=== PATIENT | female | born 1955 | race Caucasian/White ===

== ENCOUNTER 2018-08-24 06:00 | Day surgery (SDC) | payer MEDICAID ==
[2018-08-21 14:24] LABS: BASOPHILS # (AUTO) 0.1 X10'3 (0-0.2); EOSINOPHILS # (AUTO) 0.1 X10'3 (0-0.9); EOSINOPHILS % (AUTO) 2.1 % (0-6); LYMPHOCYTES # (AUTO) 1.6 X10'3 (1.1-4.8); LYMPHOCYTES % (AUTO) 28.8 % (21-51); MEAN CORPUSCULAR HEMOGLOBIN 29.1 PG (27.0-31.0); MEAN CORPUSCULAR HGB CONC 33.1 g/dL (33.0-36.5); MEAN CORPUSCULAR VOLUME 87.6 FL (78-98); MONOCYTES # (AUTO) 0.3 X10'3 (0-0.9); MONOCYTES % (AUTO) 5.8 % (2-12); NEUTROPHILS # (AUTO) 3.5 X10'3 (1.8-7.7); NEUTROPHILS % (AUTO) 62.3 % (42-75); PRE OP HEMOGLOBIN 14.3 g/dL (12.0-16.0); PRE OP PLATELET COUNT 266 X10'3 (140-440); RED BLOOD COUNT 4.91 X10'6 (4.20-5.60); RED CELL DISTRIBUTION WIDTH 14.9 % (11.5-14.5)
[2018-08-21 14:32] LABS: ALBUMIN 4.3 G/DL (3.4-5.0); ALBUMIN/GLOBULIN RATIO 1.2 (1.1-1.5); ALKALINE PHOSPHATASE 62 IU/L (46-116); BLOOD UREA NITROGEN 25 MG/DL (7-18); BUN/CREATININE RATIO 26.3 (6.6-38.0); CALCIUM 9.3 MG/DL (8.5-10.1); CHLORIDE 103 MMOL/L (99-107); CREATININE 0.95 MG/DL (0.40-0.90); PRE OP ALT 33 U/L (30-65); PRE OP ANION GAP 11 (8-16); PRE OP AST 20 U/L (10-37); PRE OP BILIRUB, TOTAL 0.7 MG/DL (0.0-1.0); PRE OP GLUCOSE 90 MG/DL (70-104); PRE OP POTASSIUM 4.2 MMOL/L (3.4-5.1); PRE OP SODIUM 139 MMOL/L (135-145); TOTAL CARBON DIOXIDE 25.5 MMOL/L (24-32); TOTAL PROTEIN 7.9 G/DL (6.4-8.2); eGFR 59 ML/MIN
[2018-08-21 14:44] LABS: PRE OP PROTIME 10.5 SECONDS (9.0-12.0)
[~2018-08-24] VITALS: Ht 157.5 cm; Wt 65.3 kg
[2018-08-24] VITALS (20 sets, daily range): BP systolic 132–198; BP diastolic 65–99
[~2018-08-24 06:00] MED LIST: ASPI-611 PO; DOCUMENT DATE & TIME OF BETA-BLOCKER PO ONE; METO-395 PO; cefotetan 2gm/isosm dext IVPB 50 ML IV ONE; famotidine 20mg tablet PO ONE; ringers solution, lacted 1,000 ML IV SCH
[2018-08-24] MEDS ORDERED: LIDOcaine 1% (10mg/ml) 2ml vial ONE (06:25)
[2018-08-24] MEDS ORDERED: clindamycin phosphate 40gm vag cream ONE (07:58)
[2018-08-24] MEDS ORDERED: vasoPRESSIN 20 units/ml inj. ONE (07:58)
[2018-08-24] MEDS ORDERED: propofol inj 20 ML IV ONE (08:18)
[2018-08-24] MEDS ORDERED: fentaNYL/PF 50MCG/1 ML 2ML syringe ONE (08:18)
[2018-08-24] MEDS ORDERED: midazolam 2 mg/2 ml injection ONE (08:18)
[2018-08-24] MEDS ORDERED: sevoflurane 250ml liquid IH ONE (08:19)
[2018-08-24] MEDS ORDERED: dexamethasone sod phosphate 4mg/ml inj. ONE (08:34)
[2018-08-24] MEDS ORDERED: ringers solution, lacted 1,000 ML IV SCH (08:47)
[2018-08-24] MEDS ORDERED: morphine 4 MG/ML inj SYRINge IV PRN ×2 (08:50)
[2018-08-24] MEDS ORDERED: meperidine/PF 25mg/ml syringe IV PRN ×3 (08:50)
[2018-08-24] MEDS ORDERED: ondansetron/PF 4mg/2ml inj IV PRN (08:50)
[2018-08-24] MEDS ORDERED: proCHLORperazine 10 MG/2 ml inj IV PRN (08:50)
[2018-08-24] MEDS ORDERED: ePHEDrine 50MG/ML INJ. ONE (09:02)
[2018-08-24] MEDS ORDERED: ondansetron/PF 4mg/2ml inj ONE (09:24)
[2018-08-24] MEDS ORDERED: HYDROcodone/acetaminophen 5mg/325mg tablet PO PRN (09:30)
[2018-08-24] MEDS ORDERED: normal saline 500ml IV soln 500 ML IV PRN (09:30)
[2018-08-24] MEDS ORDERED: diphenhydrAMINE 50 mg/ml inj IV PRN (09:30)
[2018-08-24] MEDS ORDERED: bisacodyl 10mg suppository rectal RC PRN (09:30)
[2018-08-24] MEDS ORDERED: ketorolac trometh. 30mg/ml inj. IV PRN (09:30)
[2018-08-24] MEDS ORDERED: naloxone 0.4 mg/ml inj IV PRN (09:30)
[2018-08-24] MEDS ORDERED: HYDROcodone/acetaminophen 10/325mg tab PO PRN (09:30)
[2018-08-24] MEDS ORDERED: CADD PCA waste documentation MC PRN (09:30)
[2018-08-24] MEDS ORDERED: temazepam 15mg capsule PO PRN (09:30)
--- NOTE | 2018-08-24 09:40 | NUR ---
Received from OR via bed, accompanied by Anesthesiologist. Report received. Initial physical assessment done and recorded.
[2018-08-24] MEDS: HYDROmorphone/NS 1 mg/ml CADD 50 ML IV SCH ×8 (10:18→23:00)
--- NOTE | 2018-08-24 10:45 | NUR ---
Discharge criteria met, report to receiving floor. Transferred to room in stable condition.
--- NOTE | 2018-08-24 10:45 | NUR ---
Received patient report from MARY Marquis. Awaiting patient arrival.
--- NOTE | 2018-08-24 11:08 | NUR ---
Patient arrived to floor. VSS. no complaints from patient.
[2018-08-24] MEDS ORDERED: ESTR10TA9 VG (11:32)
[2018-08-24] MEDS: ondansetron/PF 4mg/2ml inj IV PRN ×2 (12:25→19:13)
[2018-08-24] MEDS: ringers solution, lacted 1,000 ML IV SCH ×3 (12:28→20:10)
[2018-08-24] MEDS: simethicone 80mg chew tab PO SCH ×2 (13:00→17:58)
--- NOTE | 2018-08-24 18:11 | NUR ---
Problems reprioritized. Patient report given, questions answered & plan of care reviewed with MARY Hernandez.
[2018-08-24] MEDS: docusate sod 100mg capsule PO SCH (19:08)
[2018-08-24] MEDS ORDERED: ibuprofen tablet 400 MG TABLET PO PRN (20:40)
[2018-08-24] MEDS ORDERED: metoprolol succinate 25mg (24-HOUR) SR. Tablet PO SCH (21:00)
[2018-08-25] MEDS: HYDROmorphone/NS 1 mg/ml CADD 50 ML IV SCH ×5 (01:00→09:00)
[2018-08-25 04:00] VITALS: BP 142/78
[2018-08-25 05:21] LABS: BASOPHILS % (AUTO) 0.3 % (0-1); EOSINOPHILS % (AUTO) 0.3 % (0-6); HEMATOCRIT 34.6 % (35.0-45.0); HEMOGLOBIN 11.8 g/dl (12.0-16.0); LYMPHOCYTES # (AUTO) 1.1 X10'3 (1.1-4.8); LYMPHOCYTES % (AUTO) 17.4 % (21-51); MEAN CORPUSCULAR HEMOGLOBIN 29.2 PG (27.0-31.0); MEAN PLATELET VOLUME 8.5 FL (7.4-10.4); MONOCYTES # (AUTO) 0.4 X10'3 (0-0.9); MONOCYTES % (AUTO) 6.4 % (2-12); NEUTROPHILS % (AUTO) 75.6 % (42-75); PLATELET COUNT 217 X10'3 (140-440); RED BLOOD COUNT 4.03 X10'6 (4.20-5.60); RED CELL DISTRIBUTION WIDTH 14.3 % (11.5-14.5); WHITE BLOOD COUNT 6.6 X10'3 (4.5-11.0)
[2018-08-25] MEDS: ringers solution, lacted 1,000 ML IV SCH (05:30)
--- NOTE | 2018-08-25 06:47 | NUR ---
Problems reprioritized. Patient report given, questions answered & plan of care reviewed with Luz Maria HERNANDEZ. pt in bed on cell phone. no signs of distress. call light in reach. IV intact and IVF running
[2018-08-25] MEDS: docusate sod 100mg capsule PO SCH (07:33)
[2018-08-25] MEDS: simethicone 80mg chew tab PO SCH (07:33)
[2018-08-25] MEDS ORDERED: acetaminophen 325mg tablet PO PRN (08:45)
== END 2018-08-25 11:30 | disposition home or self-care (01) ==
LOC: PAS 06:00 → SUR 3N 09:29 → PAS 08-25 11:30
PROVIDERS: ATTEND Specialist
DX: N81.6 Rectocele (principal); Z88.5 Allergy status to narcotic agent; I47.1 Supraventricular tachycardia; I10 Essential (primary) hypertension; Z90.710 Acquired absence of both cervix and uterus; Z90.79 Acquired absence of other genital organ(s); Z98.890 Other specified postprocedural states; Z98.51 Tubal ligation status; Z79.899 Other long term (current) drug therapy; Z79.82 Long term (current) use of aspirin; Z87.891 Personal history of nicotine dependence; Z72.89 Other problems related to lifestyle; Z79.01 Long term (current) use of anticoagulants
CPT/HCPCS: 36415; 57250; 80053; 82948; 85025; 85610; 85730; 86885; 86900; 86901; J1100; J1170; J1885; J2175; J2250; J2405; J2704; J3010; J3490; J7120; A4315; A7000; G0378; J7030

== ENCOUNTER 2021-03-31 11:08 | Emergency (ER) | payer MEDICAID, MEDICARE ==
[~2021-03-31] VITALS: Ht 160 cm; Wt 64.1 kg
[~2021-03-31 11:08] MED LIST changes: -ASPI-611 PO; -DOCUMENT DATE & TIME OF BETA-BLOCKER PO ONE; -cefotetan 2gm/isosm dext IVPB 50 ML IV ONE; -famotidine 20mg tablet PO ONE; -ringers solution, lacted 1,000 ML IV SCH
[2021-03-31] MEDS ORDERED: aspirin 81mg tab.chew PO ONE (11:50)
[2021-03-31 12:30] LABS: BASOPHILS % (AUTO) 0.2 % (0-1); EOSINOPHILS % (AUTO) 0.3 % (0-6); HEMATOCRIT 39.1 % (35.0-45.0); HEMOGLOBIN 12.8 g/dl (12.0-16.0); LYMPHOCYTES # (AUTO) 0.5 X10'3 (1.1-4.8); LYMPHOCYTES % (AUTO) 19.3 % (21-51); MEAN CORPUSCULAR HEMOGLOBIN 28.8 PG (27.0-31.0); MEAN CORPUSCULAR HGB CONC 32.9 g/dL (33.0-36.5); MEAN CORPUSCULAR VOLUME 87.5 FL (78-98); MEAN PLATELET VOLUME 8.3 FL (7.4-10.4); MONOCYTES # (AUTO) 0.2 X10'3 (0-0.9); MONOCYTES % (AUTO) 7.8 % (2-12); NEUTROPHILS % (AUTO) 72.4 % (42-75); PLATELET COUNT 169 X10'3 (140-440); RED BLOOD COUNT 4.46 X10'6 (4.20-5.60); WHITE BLOOD COUNT 2.7 X10'3 (4.5-11.0)
[2021-03-31 12:50] VITALS: BP 134/80
[2021-03-31 12:52] LABS: ALANINE AMINOTRANSFERASE 55 U/L (12-78); ALBUMIN 3.5 G/DL (3.4-5.0); ALKALINE PHOSPHATASE 70 IU/L (46-116); ANION GAP 9 (8-16); ASPARTATE AMINO TRANSFERASE 32 U/L (10-37); BILIRUBIN,TOTAL 0.5 MG/DL (0.1-1.0); BLOOD UREA NITROGEN 10 MG/DL (7-18); BUN/CREATININE RATIO 11.9 (6.6-38.0); CALCIUM 7.9 MG/DL (8.5-10.1); CHLORIDE 106 MMOL/L (99-107); CREATININE 0.84 MG/DL (0.40-0.90); GLUCOSE 98 MG/DL (70-104); POTASSIUM 3.8 MMOL/L (3.5-5.1); SODIUM 142 MMOL/L (135-145); TOTAL CARBON DIOXIDE 26.9 MMOL/L (24-32); TOTAL PROTEIN 6.9 G/DL (6.4-8.2); eGFR 68 ML/MIN
[2021-03-31 13:27] LABS: ANISOCYTOSIS FEW; PLATELET ESTIMATE NORMAL; TOTAL CELLS COUNTED 100
== END 2021-03-31 13:49 | disposition home or self-care (01) ==
LOC: ER 11:09
DX: R07.89 Other chest pain (principal); R05.9 Cough, unspecified; I10 Essential (primary) hypertension; Z98.51 Tubal ligation status; Z88.8 Allergy status to other drugs, medicaments and biological substances; Z79.899 Other long term (current) drug therapy; Z86.16 Personal history of COVID-19
CPT/HCPCS: 36415; 71045; 80053; 84484; 85007; 85025; 93005; 99285